=== PATIENT | male | born 2000 | race African-American/Black ===

== ENCOUNTER 2024-03-06 17:41 | Emergency (ER) | payer OTHER ==
[~2024-03-06] VITALS: Ht 177.8 cm; Wt 80.9 kg
[2024-03-06] MEDS: ACETAMINOPHEN/CODEINE 300-30 MG TABLET PO ONE (19:41)
[2024-03-06] MEDS: IBUPROFEN 600 MG TABLET PO ONE (19:41)
[2024-03-06] MEDS ORDERED: IBUP-1554 PO (21:16)
[2024-03-06] MEDS ORDERED: ACET-66 PO (21:16)
[2024-03-06 22:06] VITALS: BP 123/78; PULSE 78; RESP 12; TEMP 98.2
== END 2024-03-06 22:11 | disposition home or self-care (01) ==
LOC: EMS 17:56
DX: M54.6 Pain in thoracic spine (principal)
CPT/HCPCS: 72040; 72070; 72100; 99284; Z7502; Z7610